=== PATIENT | female | born 1980 | race Caucasian/White ===

== ENCOUNTER 2017-10-23 07:08 | Observation (INO) | payer OTHER ==
[2017-10-23] MEDS ORDERED: RX INFO: IV CONTRAST WAS GIVEN 1 EACH MISC MISCELLANE PRN (07:45)
[2017-10-23] MEDS ORDERED: SODIUM CHLORIDE 0.9% 1,000 ML IV STA ×3 (07:45→08:15)
--- NOTE | 2017-10-23 07:48 | ED ---
General Adult HPI - General Chief complaint: Chest Pain Stated complaint: EVALUATION Time Seen by Provider: 10/23/17 07:30 Source: patient, RN notes reviewed Mode of arrival: ambulatory Limitations: no limitations - History of Present Illness Initial comments: Is a 37-year-old female with a benign past history of states she was helping her 6-year-old son with a nosebleed when she passed out for about 5 minutes. This occurred about 5 AM this morning. He states since that time she's some numbness in her left upper and lower extremity and she points to the left side of her chest. She denied any trouble with moving her arms or legs.. She has no history of stroke or heart disease no head trauma was reported he complains no head neck or back pain no fevers chills nausea vomiting sweats or other symptoms. She does not smoke or drink. There is a family history of heart disease on her side she states a family member the pacemaker. She reports no trouble with speech at this time. No blurry vision no other modifying factors per nursing staff upon arrival she did seem to have a slight amount of slurring to her speech which quickly resolved - Related Data Home Medications Medication Instructions Recorded Confirmed No Known Home Medications [No 10/23/17 10/23/17 Known Home Medications] Allergies Allergy/AdvReac Type Severity Reaction Status Date / Time No Known Allergies Allergy Verified 10/23/17 08:13 Review of Systems ROS Statement: Those systems with pertinent positive or pertinent negative responses have been documented in the HPI. ROS Other: All systems not noted in ROS Statement are negative. Past Medical History Past Medical History: No Reported History History of Any Multi-Drug Resistant Organisms: None Reported Past Surgical History: No Surgical Hx Reported Past Psychological History: No Psychological Hx Reported Smoking Status: Never smoker Past Alcohol Use History: None Reported Past Drug Use History: None Reported General Exam - General Exam Comments Initial Comments: This is a well-developed well-nourished awake alert oriented 3 female Limitations: no limitations General appearance: alert, anxious Head exam: Present: atraumatic, normocephalic, normal inspection Eye exam: Present: normal appearance, PERRL, EOMI. Absent: scleral icterus, conjunctival injection, periorbital swelling ENT exam: Present: normal exam, mucous membranes moist Neck exam: Present: normal inspection. Absent: tenderness, meningismus, lymphadenopathy Respiratory exam: Present: normal lung sounds bilaterally. Absent: respiratory distress, wheezes, rales, rhonchi, stridor Cardiovascular Exam: Present: regular rate, normal rhythm, normal heart sounds. Absent: systolic murmur, diastolic murmur, rubs, gallop, clicks GI/Abdominal exam: Present: soft, normal bowel sounds. Absent: distended, tenderness, guarding, rebound, rigid Extremities exam: Present: normal inspection, normal capillary refill. Absent: full ROM, tenderness, pedal edema, joint swelling, calf tenderness Back exam: Present: normal inspection Neurological exam: Present: alert, oriented X3, CN II-XII intact, motor sensory deficit Psychiatric exam: Present: normal affect, normal mood Skin exam: Present: warm, dry, intact, normal color. Absent: rash Course Vital Signs 10/23/17 10/23/17 10/23/17 07:11 07:45 08:00 Temperature 97.1 F L Pulse Rate 78 76 76 Respiratory 20 19 18 Rate Blood Pressure 126/71 144/103 127/56 O2 Sat by Pulse 100 99 100 Oximetry 10/23/17 10/23/17 10/23/17 08:15 08:30 09:00 Temperature Pulse Rate 79 79 74 Respiratory 18 19 17 Rate Blood Pressure 124/73 141/69 134/77 O2 Sat by Pulse 100 100 100 Oximetry - Reevaluation(s) Reevaluation #1: 10/23/17 09:08 Patient did demonstrate an NIH stroke scale of 8 originally with left upper lower extremity weakness. She has some slightly slurred speech apparently that did resolve. Code stroke was activated. Reevaluation #2: 10/23/17 09:08 Reevaluation to return from CAT scan revealed that the symptoms have totally resolved. Reevaluation #3: 10/23/17 10:19 Patient is still asymptomatic this time we did have a long discussion regarding the need for further evaluation I did recommend admission the patient initially wanted to leave AGAINST MEDICAL ADVICE but has since changed her mind and will be admitted demonstrate evidence of syncope this morning also possible TIA. EKG Findings - EKG Results: EKG: interpreted by RENAE, sinus rhythm (Normal sinus rhythm rate of 89. Interval 150 to QRS duration 76 QT since QTC of 370/459 this is a normal- appearing EKG.) Medical Decision Making - Medical Decision Making The original plan was to admit the patient for evaluation of syncope and apparent TIA. Seizure and conversion reaction is not ruled out. I did a long discussion with patient regarding the findings with her 14-year-old son present. Patient is refusing to be admitted at this time and wants to follow up outpatient. - Lab Data Result diagrams: 10/23/17 07:50 10/23/17 07:50 Lab Results 10/23/17 10/23/17 10/23/17 Range/Units 07:50 07:50 07:50 WBC 9.0 (3.8-10.6) k/uL RBC 4.49 (3.80-5.40) m/uL Hgb 13.5 (11.4-16.0) gm/dL Hct 39.5 (34.0-46.0) % MCV 87.9 (80.0-100.0) fL MCH 30.0 (25.0-35.0) pg MCHC 34.2 (31.0-37.0) g/dL RDW 13.2 (11.5-15.5) % Plt Count 277 (150-450) k/uL Neutrophils % 63 % Lymphocytes % 27 % Monocytes % 5 % Eosinophils % 3 % Basophils % 0 % Neutrophils # 5.6 (1.3-7.7) k/uL Lymphocytes # 2.5 (1.0-4.8) k/uL Monocytes # 0.5 (0-1.0) k/uL Eosinophils # 0.3 (0-0.7) k/uL Basophils # 0.0 (0-0.2) k/uL PT (9.0-12.0) sec INR (<1.2) APTT (22.0-30.0) sec Sodium 142 (137-145) mmol/L Potassium 4.0 (3.5-5.1) mmol/L Chloride 106 (98-107) mmol/L Carbon Dioxide 22 (22-30) mmol/L Anion Gap 14 mmol/L BUN 16 (7-17) mg/dL Creatinine 0.59 (0.52-1.04) mg/dL Est GFR (CKD-EPI)AfAm >90 (>60 ml/min/1.73 sqM) Est GFR (CKD-EPI)NonAf >90 (>60 ml/min/1.73 sqM) Glucose 96 (74-99) mg/dL Calcium 9.6 (8.4-10.2) mg/dL Magnesium (1.6-2.3) mg/dL Total Bilirubin 0.6 (0.2-1.3) mg/dL AST 23 (14-36) U/L ALT 25 (9-52) U/L Alkaline Phosphatase 33 L (38-126) U/L Total Creatine Kinase 71 (30-135) U/L CK-MB (CK-2) 0.3 (0.0-2.4) ng/mL CK-MB (CK-2) Rel Index 0.4 Troponin I <0.012 (0.000-0.034) ng/mL Total Protein 7.1 (6.3-8.2) g/dL Albumin 4.3 (3.5-5.0) g/dL TSH (0.465-4.680) mIU/L Urine Color Urine Appearance (Clear) Urine pH (5.0-8.0) Ur Specific Pinckard (1.001-1.035) Urine Protein (Negative) Urine Glucose (UA) (Negative) Urine Ketones (Negative) Urine Blood (Negative) Urine Nitrite (Negative) Urine Bilirubin (Negative) Urine Urobilinogen (<2.0) mg/dL Ur Leukocyte Esterase (Negative) Urine Opiates Screen (NotDetected) Ur Oxycodone Screen (NotDetected) Urine Methadone Screen (NotDetected) Ur Propoxyphene Screen (NotDetected) Ur Barbiturates Screen (NotDetected) U Tricyclic Antidepress (NotDetected) Ur Phencyclidine Scrn (NotDetected) Ur Amphetamines Screen (NotDetected) U Methamphetamines Scrn (NotDetected) U Benzodiazepines Scrn (NotDetected) Urine Cocaine Screen (NotDetected) U Marijuana (THC) Screen (NotDetected) 10/23/17 10/23/17 10/23/17 Range/Units 07:50 07:50 08:42 WBC (3.8-10.6) k/uL RBC (3.80-5.40) m/uL Hgb (11.4-16.0) gm/dL Hct (34.0-46.0) % MCV (80.0-100.0) fL MCH (25.0-35.0) pg MCHC (31.0-37.0) g/dL RDW (11.5-15.5) % Plt Count (150-450) k/uL Neutrophils % % Lymphocytes % % Monocytes % % Eosinophils % % Basophils % % Neutrophils # (1.3-7.7) k/uL Lymphocytes # (1.0-4.8) k/uL Monocytes # (0-1.0) k/uL Eosinophils # (0-0.7) k/uL Basophils # (0-0.2) k/uL PT 10.4 (9.0-12.0) sec INR 1.1 (<1.2) APTT 18.3 L (22.0-30.0) sec Sodium (137-145) mmol/L Potassium (3.5-5.1) mmol/L Chloride (98-107) mmol/L Carbon Dioxide (22-30) mmol/L Anion Gap mmol/L BUN (7-17) mg/dL Creatinine (0.52-1.04) mg/dL Est GFR (CKD-EPI)AfAm (>60 ml/min/1.73 sqM) Est GFR (CKD-EPI)NonAf (>60 ml/min/1.73 sqM) Glucose (74-99) mg/dL Calcium (8.4-10.2) mg/dL Magnesium 1.8 (1.6-2.3) mg/dL Total Bilirubin (0.2-1.3) mg/dL AST (14-36) U/L ALT (9-52) U/L Alkaline Phosphatase (38-126) U/L Total Creatine Kinase (30-135) U/L CK-MB (CK-2) (0.0-2.4) ng/mL CK-MB (CK-2) Rel Index Troponin I (0.000-0.034) ng/mL Total Protein (6.3-8.2) g/dL Albumin (3.5-5.0) g/dL TSH 2.480 (0.465-4.680) mIU/L Urine Color Light Yellow Urine Appearance Clear (Clear) Urine pH 8.0 (5.0-8.0) Ur Specific Pin[place]ard 1.024 (1.001-1.035) Urine Protein Negative (Negative) Urine Glucose (UA) Negative (Negative) Urine Ketones Negative (Negative) Urine Blood Negative (Negative) Urine Nitrite Negative (Negative) Urine Bilirubin Negative (Negative) Urine Urobilinogen <2.0 (<2.0) mg/dL Ur Leukocyte Esterase Negative (Negative) Urine Opiates Screen Not Detected (NotDetected) Ur Oxycodone Screen Not Detected (NotDetected) Urine Methadone Screen Not Detected (NotDetected) Ur Propoxyphene Screen Not Detected (NotDetected) Ur Barbiturates Screen Not Detected (NotDetected) U Tricyclic Antidepress Not Detected (NotDetected) Ur Phencyclidine Scrn Not Detected (NotDetected) Ur Amphetamines Screen Not Detected (NotDetected) U Methamphetamines Scrn Not Detected (NotDetected) U Benzodiazepines Scrn Not Detected (NotDetected) Urine Cocaine Screen Not Detected (NotDetected) U Marijuana (THC) Screen Not Detected (NotDetected) - Radiology Data Radiology results: report reviewed (I did review the imaging and reports no acute processes are seen at this time.), image reviewed Critical Care Time Critical Care Time: Yes Critical Care Time: 39 minutes of critical care time which includes initial presentation with history physical labs x-rays several reevaluation of the patient and discussed with her regarding the findings. Stroke activation. Discussed with the admitting physician admission orders and documentation of the above. Disposition Clinical Impression: TIA (transient ischemic attack), Syncope Disposition: ADMITTED IP TO THIS [facility] Condition: Stable Referrals: Padilla Goodwin MD [Primary Care Provider] - 1-2 days
[2017-10-23] MEDS ORDERED: ALTEPLASE BOLUS 6 MG in EMPTY SYRINGE 1 SYR IV STA (08:01)
[2017-10-23] MEDS ORDERED: ALTEPLASE 51 MG in EMPTY BAG 1 BAG IV STA (08:01)
[2017-10-23 08:03] LABS: Basophils % (A) 0 %; Eosinophils # (A) 0.3 k/uL (0-0.7); Eosinophils % (A) 3 %; HCT 39.5 % (34.0-46.0); HGB 13.5 gm/dL (11.4-16.0); Lymphocytes # (A) 2.5 k/uL (1.0-4.8); Lymphocytes % (A) 27 %; MCHC 34.2 g/dL (31.0-37.0); MCV 87.9 fL (80.0-100.0); Mean Platelet Volume 8.1; Monocytes # (A) 0.5 k/uL (0-1.0); Monocytes % (A) 5 %; Neutrophils # (A) 5.6 k/uL (1.3-7.7); Neutrophils % (A) 63 %; Platelet Count 277 k/uL (150-450); RBC 4.49 m/uL (3.80-5.40); RDW 13.2 % (11.5-15.5)
[2017-10-23] MEDS ORDERED: ALTEPLASE IV STA (08:05)
--- NOTE | 2017-10-23 08:05 | CT ---
EXAMINATION TYPE: CT brain wo con for TPA DATE OF EXAM: 10/23/2017 COMPARISON: NONE HISTORY: Passed out and having left sided weakness, neurodeficits CT DLP: 981.70 mGycm Automated exposure control for dose reduction was used. FINDINGS: There is no acute intracranial hemorrhage, mass effect, or midline shift identified. The ventricles and sulci are within normal limits in size. Petty-white matter differentiation is maintained. The kassandra bes are intact and the visualized sinuses are clear. IMPRESSION: No acute intracranial hemorrhage, mass effect, or midline shift is seen. Unremarkable study.
[2017-10-23 08:13] LABS: ALT 25 U/L (9-52); AST 23 U/L (14-36); Albumin 4.3 g/dL (3.5-5.0); Alkaline Phosphatase 33 U/L (38-126); Anion Gap 14 mmol/L; Blood Urea Nitrogen 16 mg/dL (7-17); Calcium 9.6 mg/dL (8.4-10.2); Carbon Dioxide 22 mmol/L (22-30); Chloride 106 mmol/L (98-107); Glucose 96 mg/dL (74-99); Sodium 142 mmol/L (137-145); Total Bilirubin 0.6 mg/dL (0.2-1.3); Total Protein 7.1 g/dL (6.3-8.2)
[2017-10-23] MEDS ORDERED: ATORVASTATIN 80 MG TAB PO STA (08:14)
[2017-10-23] MEDS ORDERED: ASPIRIN 81 MG PO STA (08:14)
[2017-10-23 08:18] LABS: INR 1.1 (<1.2); Prothrombin Time 10.4 sec (9.0-12.0)
[2017-10-23 08:23] LABS: Partial Thromboplastin Time 18.3 sec (22.0-30.0)
[2017-10-23 08:39] LABS: Magnesium 1.8 mg/dL (1.6-2.3)
[2017-10-23 08:52] LABS: Creatine Kinase 71 U/L (30-135)
[2017-10-23 08:58] LABS: Appearance,Urine Clear (Clear); Bilirubin,Urine Negative (Negative); Blood,Urine Negative (Negative); Color,Urine Light Yellow; Glucose,Urine (UA) Negative (Negative); Ketones,Urine Negative (Negative); Leukocyte Esterase,Urine Negative (Negative); Nitrite,Urine Negative (Negative); Protein,Urine Negative (Negative); Specific Gravity,Urine 1.024 (1.001-1.035); Urobilinogen,Urine <2.0 mg/dL (<2.0)
[2017-10-23 09:03] LABS: Creatine Kinase MB 0.3 ng/mL (0.0-2.4); Troponin I <0.012 ng/mL (0.000-0.034)
[2017-10-23 09:13] LABS: Amphetamine Screen,Urine Not Detected (NotDetected); Barbiturate Screen,Urine Not Detected (NotDetected); Benzodiazepines Screen,Urine Not Detected (NotDetected); Cocaine Screen,Urine Not Detected (NotDetected); Methadone Screen, Urine Not Detected (NotDetected); Opiate Screen,Urine Not Detected (NotDetected); Oxycodone Screen, Urine Not Detected (NotDetected); Phencyclidine Screen,Urine Not Detected (NotDetected); Tricyclic Antidepressant,Urine Not Detected (NotDetected); Urn Cannabinoid Scrn Not Detected (NotDetected)
--- NOTE | 2017-10-23 09:21 | CT ---
EXAMINATION TYPE: CT angio head neck DATE OF EXAM: 10/23/2017 COMPARISON: NONE HISTORY: 37-year-old female syncopal episode with left sided weakness TECHNIQUE: Contiguous axial scanning of the head and neck performed with IV Contrast, patient injecte d with 65 mL of Isovue 370. Coronal and sagittal MIP reconstructions performed. 3-D reconstructions g enerated on a dedicated independent workstation. CT DLP: 223.6 mGycm Automated exposure control for dose reduction was used. FINDINGS: Neck: There is conventional arterial vessel branching anatomy. The vertebral arteries appear codominant. There origins are patent. The proximal left vertebral arter y is limited in visualization due to prominent adjacent venous artifact. Otherwise, the vessels are p atent throughout their course. The right common and internal carotid arteries are widely patent. The left common and internal carotid arteries are widely patent. Head: No significant stenosis or occlusion of the internal carotid, vertebral, or basilar arteries. No aneu rysmal changes identified. Anterior and posterior circulations show no gross abnormality. Dural venous sinuses appear patent. IMPRESSION: 1. NECK: SUBOPTIMAL ASSESSMENT OF THE PROXIMAL LEFT VERTEBRAL ARTERY DUE TO ADJACENT VENOUS ARTIFACT. OTHERWISE, WIDELY PATENT VERTEBRAL AND CAROTID ARTERIES IN THE NECK. 2. HEAD: NO LARGE VESSEL INTRACRANIAL ARTERIAL OCCLUSION.
--- NOTE | 2017-10-23 09:23 | XR ---
EXAMINATION TYPE: XR chest 2V DATE OF EXAM: 10/23/2017 COMPARISON: NONE HISTORY: Syncopal episode and weakness today. TECHNIQUE: Frontal and lateral views of the chest are obtained. FINDINGS: Multiple overlying EKG wires are present. There is no focal air space opacity, pleural effu teri, or pneumothorax seen. The cardiac silhouette size is within normal limits. The osseous struc tures are intact. IMPRESSION: No acute cardiopulmonary process.
[2017-10-23] MEDS ORDERED: SODIUM CHLORIDE 0.9% 1,000 ML IV SCH (10:30)
[2017-10-23 13:19] VITALS: RESP 18
[2017-10-23 13:28] LABS: Glucose,Whole Blood 77 mg/dL (75-99)
--- NOTE | 2017-10-23 15:24 | P.HPIM ---
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 Patient doesn't remember the episode patient's son has a bleed because of which she had on the floor pretty quickly and had an event which sounds like a vasovagal event, after that patient went to the bathroom to urinate and sat in the bathroom and lost consciousness for about 3- 5 minutes no seizure-like activity no loss of bowel or bladder continence. Patient gave me a history of possible weakness in the left hand although patient is able to walk to the hospital normally and patient doesn't have any weakness at this point of time no tingling numbness. My suspicion is low for TIA patient did have a vasovagal event. I'm waiting for echo cardiac exam CT angios the head and neck did not show any significant abnormality echocardiogram will be done after the patient will be discharged to follow up with neurology as an outpatient as my suspicion is extremely low and will not start her on any statin patient will be discharged on aspirin and will see neurology as an outpatient. I do not believe we need to wait for results of echocardiogram as clinically patient doesn't have any murmurs clicks or loud S2. EKG is normal sinus rhythm. Review of Systems REVIEW OF SYSTEMS: CONSTITUTIONAL: No fever, no malaise, no fatigue. HEENT: No recent visual problems or hearing problems. Denied any sore throat. CARDIOVASCULAR: No chest pain, orthopnea, PND, no palpitations, PULMONARY: No shortness of breath, no cough, no hemoptysis. GASTROINTESTINAL: No diarrhea, no nausea, no vomiting, no abdominal pain. Normoactive bowel sounds. NEUROLOGICAL: No headaches, no weakness, no numbness. HEMATOLOGICAL: Denies any bleeding or petechiae. GENITOURINARY: Denies any burning micturition, frequency, or urgency. MUSCULOSKELETAL/RHEUMATOLOGICAL: Denies any joint pain, swelling, or any muscle pain. ENDOCRINE: Denies any polyuria or polydipsia. The rest of the 14-point review of systems is negative. Past Medical History Past Medical History: No Reported History History of Any Multi-Drug Resistant Organisms: None Reported Past Surgical History: No Surgical Hx Reported Past Anesthesia/Blood Transfusion Reactions: Unable to Obtain Smoking Status: Never smoker - Past Family History Father Family Medical History: Myocardial Infarction (ME) Additional Family Medical History / Comment(s): Father had a ME at the age of 33 yrs and had a pacer/aicd placed at age 57yrs. Mother Family Medical History: Congestive Heart Failure (CHF), Diabetes Mellitus Medications and Allergies Home Medications Medication Instructions Recorded Confirmed Type Aspirin 81 mg PO DAILY #30 chewable 10/23/17 Rx Allergies Allergy/AdvReac Type Severity Reaction Status Date / Time No Known Allergies Allergy Verified 10/23/17 08:13 Physical Exam Vitals: Vital Signs Temp Pulse Pulse Resp BP BP Pulse Ox 10/23/17 14:21 82 18 115/56 10/23/17 13:17 76 18 118/63 98 10/23/17 10:30 86 16 126/80 100 10/23/17 09:30 76 16 113/77 92 L 10/23/17 09:00 74 17 134/77 100 10/23/17 08:30 79 19 141/69 100 10/23/17 08:15 79 18 124/73 100 10/23/17 08:00 76 18 127/56 100 10/23/17 07:45 76 19 144/103 99 10/23/17 07:11 97.1 F L 78 20 126/71 100 Intake and Output 10/23/17 10/23/17 10/23/17 06:59 14:59 22:59 Other: Weight 63.503 kg PHYSICAL EXAMINATION: GENERAL: The patient is alert and oriented x3, not in any acute distress. Well developed, well nourished. HEENT: Pupils are round and equally reacting to light. EOMI. No scleral icterus. No conjunctival pallor. Normocephalic, atraumatic. No pharyngeal erythema. No thyromegaly. CARDIOVASCULAR: S1 and S2 present. No murmurs, rubs, or gallops. PULMONARY: Chest is clear to auscultation, no wheezing or crackles. ABDOMEN: Soft, nontender, nondistended, normoactive bowel sounds. No palpable organomegaly. MUSCULOSKELETAL: No joint swelling or deformity. EXTREMITIES: No cyanosis, clubbing, or pedal edema. NEUROLOGICAL: Gross neurological examination did not reveal any focal deficits. SKIN: No rashes. Results CBC & Chem 7: 10/23/17 07:50 10/23/17 07:50 Labs: Abnormal Lab Results - Last 24 Hours (Table) 10/23/17 10/23/17 Range/Units 07:50 07:50 APTT 18.3 L (22.0-30.0) sec Alkaline Phosphatase 33 L (38-126) U/L Thrombosis Risk Factor Assmnt - Choose All That Apply Any of the Below Risk Factors Present?: No Other Risk Factors: No Other congenital or acquired thrombophilia - If yes, enter type in comment: No Thrombosis Risk Factor Assessment Level: Very Low Risk Assessment and Plan Plan: -Syncope: Possibly vasovagal. We'll obtain echocardiogram and patient wanted to go home can be discharged. Patient denied any palpitations. She has another similar event and she needed to be monitored for any rhythm abnormalities. -Low possibility of a TIA further management as mentioned above
--- NOTE | 2017-10-23 15:28 | P.DS ---
Providers Date of admission: 10/23/17 10:22 Attending physician: Ramona Collier Consults: 10/23/17 10:23 Consult Physician Routine Consulting Provider: Miriam Trinidad Consult Reason/Comments: TIA and syncope Do you want consulting provider notified?: Yes 10/23/17 10:24 Consult Physician Routine Consulting Provider: Rayo Ta Consult Reason/Comments: Syncope and TIA Do you want consulting provider notified?: Yes Primary care physician: Padilla Goodwin Hospital Course: As mentioned in HPI Patient Condition at Discharge: Stable Plan - Discharge Summary Discharge Rx Participant: No New Discharge Prescriptions: New Aspirin 81 mg PO DAILY #30 chewable Discharge Medication List Aspirin 81 mg PO DAILY #30 chewable 10/23/17 [Rx] Follow up Appointment(s)/Referral(s): Padilla Goodwin MD [Primary Care Provider] - 3 Days Miriam Trinidad MD [STAFF PHYSICIAN] - 1 Week Discharge Disposition: HOME SELF-CARE
[2017-10-23 15:59] VITALS: BP 102/77; PULSE 80; TEMP 98
[2017-10-24] MEDS ORDERED: ASPIRIN 325 MG TAB PO SCH (09:00)
--- NOTE | 2017-10-24 10:55 | ECHOF ---
Referral Reason:echo MEASUREMENTS -------- HEIGHT: 165.1 cm WEIGHT: 63.5 kg BP: 115/56 RVIDd: 2.3 cm (< 3.3) IVSd: 1.0 cm (0.6 - 1.1) LVIDd: 3.6 cm (3.9 - 5.3) LVPWd: 0.9 cm (0.6 - 1.1) IVSs: 1.3 cm LVIDs: 2.3 cm LVPWs: 1.2 cm LA Diam: 2.5 cm (2.7 - 3.8) Ao Diam: 2.3 cm (2.0 - 3.7) AV Cusp: 1.6 cm (1.5 - 2.6) EPSS: 0.2 cm MV E Marcello: 1.33 m/s MV DecT: 145 ms MV A Marcello: 0.84 m/s MV E/A Ratio: 1.58 MV EF SLOPE: 133.25 mm/s (70 - 150) MV EXCURSION: 1.27 cm (> 18.000) FINDINGS -------- Sinus rhythm. This was a technically good study. The left ventricular size is normal. Left ventricular wall thickness is normal. Overall left vent ricular systolic function is normal with, an EF between 55 - 60 %. The right ventricle is normal in size. The left atrial size is normal. The right atrium is normal in size. The aortic valve is trileaflet and appears structurally normal. The mitral valve is normal. The tricuspid valve appears structurally normal. The pulmonic valve was not well visualized. The aortic root size is normal. Normal inferior vena cava with normal inspiratory collapse consistent with estimated right atrial pre ssure of 5 mmHg. There is no pericardial effusion. CONCLUSIONS -------- 1. Sinus rhythm. 2. This was a technically good study. 3. The left ventricular size is normal. 4. Left ventricular wall thickness is normal. 5. Overall left ventricular systolic function is normal with, an EF between 55 - 60 %. 6. The right ventricle is normal in size. 7. The left atrial size is normal. 8. The right atrium is normal in size. 9. The aortic valve is trileaflet and appears structurally normal. 10. The mitral valve is normal. 11. The tricuspid valve appears structurally normal. 12. The pulmonic valve was not well visualized. 13. The aortic root size is normal. 14. Normal inferior vena cava with normal inspiratory collapse consistent with estimated right atrial pressure of 5 mmHg. 15. There is no pericardial effusion. LOCK MASTER: ANUEL Kohler
== END 2017-10-23 16:15 | disposition home or self-care (01) ==
LOC: EC 07:08 → 6SEL 10:22
PROVIDERS: ADMIT Internal Medicine; ATTEND Internal Medicine
DX: R55 Syncope and collapse (principal); R47.81 Slurred speech; R53.1 Weakness; R29.708 NIHSS score 8; Z82.49 Family history of ischemic heart disease and other diseases of the circulatory system; Z83.3 Family history of diabetes mellitus
CPT/HCPCS: 99291 ×2; 96360 ×2; 96361 ×7; 36415; 93005; 93306; 80053; 84443; 82550; 82553; 83735; 84484; 85025; 85610; 85730; 81003; 80306; 71046; 70496; 70450; 70498; G0378; Q9967

== ENCOUNTER → 2018-10-28 | Outpatient (CLI) | payer MEDICAID ==
[2018-10-28 11:39] LABS: ALT 27 U/L (9-52); AST 20 U/L (14-36); Albumin 4.6 g/dL (3.5-5.0); Alkaline Phosphatase 41 U/L (38-126); Anion Gap 8 mmol/L; Blood Urea Nitrogen 15 mg/dL (7-17); Calcium 9.5 mg/dL (8.4-10.2); Carbon Dioxide 24 mmol/L (22-30); Chloride 109 mmol/L (98-107); Cholesterol 187 mg/dL (<200); Glucose 82 mg/dL (74-99); HDL Cholesterol 53 mg/dL (40-60); LDL Cholesterol,Calculated 119 mg/dL (0-99); Sodium 141 mmol/L (137-145); Total Bilirubin 0.7 mg/dL (0.2-1.3); Total Protein 7.4 g/dL (6.3-8.2); Triglycerides 73 mg/dL (<150)
[2018-10-28 11:55] LABS: HCT 43.2 % (34.0-46.0); HGB 13.8 gm/dL (11.4-16.0); MCH 29.5 pg (25.0-35.0); Mean Platelet Volume 7.2; Platelet Count 240 k/uL (150-450); RDW 13.5 % (11.5-15.5)
--- NOTE | 2018-10-28 12:58 | MM ---
Reason for exam: screening (asymptomatic). Baseline mammogram. History: Family history of breast cancer in sister at age 40, breast cancer in sister, breast cancer in maternal cousin at age 39, and breast cancer in maternal grandmother at age 78. Retro-pectoral silicone gel implants in both breasts, 2012. Physical Findings: Nurse did not find any significant physical abnormalities on exam. MG 3D Screen Mammo Imp/Cad Bilateral CC, MLO, and ID view(s) were taken. The breast tissue is extremely dense which could obscure a lesion on mammography. There is no discrete abnormality. Bilateral breast prothesis. ASSESSMENT: Negative, BI-RAD 1 RECOMMENDATION: Routine screening mammogram of both breasts in 1 year.
[2018-10-29 16:16] LABS: T4, Free (Free Thyroxine) 1.02 ng/dL (0.78-2.19)
== END ==
LOC: RADMAMWWP 09:59
PROVIDERS: ATTEND Family Medicine
DX: Z12.31 Encounter for screening mammogram for malignant neoplasm of breast (principal); Z00.00 Encounter for general adult medical examination without abnormal findings; Z80.3 Family history of malignant neoplasm of breast; Z98.82 Breast implant status
CPT/HCPCS: 36415; 77063; 77067; 80053; 80061; 82306; 84439; 84443; 84481; 85027

== ENCOUNTER → 2020-09-27 | Outpatient (CLI) | payer MEDICAID ==
--- NOTE | 2020-10-02 10:42 | MM ---
Reason for exam: screening (asymptomatic). Last mammogram was performed 1 year and 11 months ago. History: Family history of breast cancer in sister at age 40, breast cancer in sister, breast cancer in maternal cousin at age 39, and breast cancer in maternal grandmother at age 78. Retro-pectoral silicone gel implants in both breasts, 2012. Physical Findings: A clinical breast exam by your physician is recommended on an annual basis and results should be correlated with mammographic findings. MG 3D Screen Mammo Imp/Cad Bilateral CC, MLO, and ID view(s) were taken. Prior study comparison: October 28, 2018, bilateral MG 3d screen mammo imp/cad. The breast tissue is heterogeneously dense. This may lower the sensitivity of mammography. Bilateral breast prothesis. No significant changes when compared with prior studies. ASSESSMENT: Benign, BI-RAD 2 RECOMMENDATION: Routine screening mammogram of both breasts in 1 year.
== END ==
LOC: RADMAMWWP 09:24
PROVIDERS: ATTEND Family Medicine
DX: Z12.31 Encounter for screening mammogram for malignant neoplasm of breast (principal); Z80.3 Family history of malignant neoplasm of breast
CPT/HCPCS: 77063; 77067

== ENCOUNTER → 2021-12-06 | Outpatient (CLI) | payer OTHER ==
--- NOTE | 2021-12-06 14:54 | MM ---
Reason for Exam: Screening (asymptomatic). Last mammogram was performed 1 year(s) and 2 month(s) ago. Patient History: Menarche at age 10. First Full-Term at age 22. 2013, Bilateral Implants. Maternal grandmother had breast cancer, age 78. Maternal cousin had breast cancer, age 39. Sister had breast cancer, age 40. Sister had breast cancer. Risk Values: Birgit 5 year model risk: 2.9%. NCI Lifetime model risk: 34.1%. Film Views: Bilateral CC views were taken. Bilateral MLO views were taken. Prior Study Comparison: 10/28/2018 Bilateral Screening Mammogram, [facility]. 09/27/2020 Bilateral Screening Mammogram, [facility]. Tissue Density: The breast tissue is heterogeneously dense. This may lower the sensitivity of mammography. Findings: Lateral breast prostheses are present. No suspicious spiculated or lobular masses or clusters of microcalcifications, architectural distortion, or other secondary signs of malignancy are radiographically apparent. Overall Assessment: Benign, BI-RAD 2 Management: Screening Mammogram of both breasts in 1 year. A clinical breast exam by your physician is recommended on an annual basis and results should be correlated with mammographic findings. Electronically signed and approved by: Channing Rudolph D.O. Radiologis
== END | disposition home or self-care (01) ==
LOC: RADMAMWWP 06:50
PROVIDERS: ATTEND Family Medicine
DX: Z12.31 Encounter for screening mammogram for malignant neoplasm of breast (principal); Z80.3 Family history of malignant neoplasm of breast
CPT/HCPCS: 77063; 77067

== ENCOUNTER → 2023-06-10 | Outpatient (CLI) | payer OTHER ==
--- NOTE | 2023-06-11 09:23 | MM ---
Reason for Exam: Screening (asymptomatic). Last mammogram was performed 1 year(s) and 6 month(s) ago. Patient History: Menarche at age 10. First Full-Term at age 22. 2013, Bilateral Implants. Maternal grandmother had breast cancer, age 78. Maternal cousin had breast cancer, age 39. Sister had breast cancer, age 40. Sister had breast cancer. Last menstrual period: 06/05/2023 Risk Values: Birgit 5 year model risk: 3.1%. NCI Lifetime model risk: 33.9%. Prior Study Comparison: 10/28/2018 Bilateral Screening Mammogram, [facility]. 09/27/2020 Bilateral Screening Mammogram, [facility]. 12/06/2021 Bilateral MG 3D screen mammo imp/cad., [facility]. Tissue Density: The breast tissue is heterogeneously dense. This may lower the sensitivity of mammography. Findings: Analyzed By CAD. Bilateral breast implants appear intact. There is no suspicious group of microcalcifications or new suspicious mass. Overall Assessment: Negative, BI-RAD 1 Management: Screening Mammogram of both breasts in [address] [facility] will attempt to contact patient to return for supplemental views and ultrasound if indicated. Patient should continue monthly self-breast exams. A clinical breast exam by your physician is recommended on an annual basis. This exam should not preclude additional follow-up of suspicious palpable abnormalities. Note on Birgit scores and lifetime risk: 1. A Birgit score greater than 3% is considered moderate risk. If this is the case, consider specialist referral to assess eligibility for a risk reducing agent. 2. If overall lifetime risk for the development of breast cancer is 20% or higher, the patient may qualify for future screening with alternating mammogram and breast MRI. Electronically signed and approved by: Enoch Lewis DO
== END | disposition home or self-care (01) ==
LOC: RADMAMWWP 14:52
PROVIDERS: ATTEND Family Medicine
DX: Z12.31 Encounter for screening mammogram for malignant neoplasm of breast (principal); Z80.3 Family history of malignant neoplasm of breast; Z98.82 Breast implant status
CPT/HCPCS: 77063; 77067